=== PATIENT | female | born 1955 | race Caucasian/White ===

== ENCOUNTER 2024-10-24 09:16 | Emergency (ER) | payer OTHER ==
[2024-10-24] MEDS: oxyCODONE 5 MG Tab PO ONE (10:24)
[2024-10-24] MEDS: Ketorolac 30 MG/ML SDV IM ONE (10:24)
== END 2024-10-24 13:06 | disposition home or self-care (01) ==
LOC: MW.ED 09:16
DX: S32.010A Wedge compression fracture of first lumbar vertebra, initial encounter for closed fracture (principal); S32.020A Wedge compression fracture of second lumbar vertebra, initial encounter for closed fracture; F17.210 Nicotine dependence, cigarettes, uncomplicated; W06.XXXA Fall from bed, initial encounter
CPT/HCPCS: 72070; 72100; 72131; 96372; 99284; A9270; J1885; 99283